=== PATIENT | female | born 1965 | race Caucasian/White ===

== ENCOUNTER 2021-02-13 13:05 | Outpatient (CLI) | payer OTHER, SELFPAY ==
--- NOTE | ~2021-02-13 | US_ITS ---
EXAMINATION: US soft tissue LE LT DATE: 02/13/2021 13:25 INDICATION: Soft tissue swelling at the lateral aspect of the distal left lower leg. TECHNIQUE: Multiple grayscale and Doppler ultrasound images of the region of concern at the lateral d istal left calf were obtained. COMPARISON: None FINDINGS: Normal appearance to the subcutaneous fat and underlying musculature at the region of concern. No abn ormal masses or fluid collections identified. IMPRESSION: 1. Normal study. No abnormal masses or fluid collections identified at the region of concern. Reviewed, dictated and finalized at location A. IMPRESSION: 1. Normal study. No abnormal masses or fluid collections identified at the taras on of concern.
== END 2021-02-13 13:06 | disposition home or self-care (01) ==
LOC: ANHIMG 13:07
PROVIDERS: Visit Provider Nurse Practitioner
DX: R22.42 Localized swelling, mass and lump, left lower limb (principal)
CPT/HCPCS: 76882